=== PATIENT | female | born 1990 | race Two or more races ===

== ENCOUNTER 2025-02-15 16:30 | Emergency (ER) | payer MEDICAID, SELFPAY ==
[2025-02-15 16:40] VITALS: BP 129/89; PULSE 98; RESP 18; TEMP 36.9; O2SAT 97; BMI 31.4
--- NOTE | 2025-02-15 17:43 | XR_ITS ---
Examination: Temporomandibular joints 3 views TECHNIQUE: Sonu, sagittal oblique right and left temporomandibular joints 3 views Date and time: February 15, 2025 1804 hours INDICATIONS: Mandibular pain 3 days. FINDINGS: Body of the mandible and condyles appear intact Bilateral mild osteoarthritis temporomandibular joints No conor cortical bone destruction No fracture is depicted IMPRESSION: Mild bilateral osteoarthritis temporomandibular joints. If pain persists, consider CT maxillofacial/mandible follow-up
--- NOTE | 2025-02-15 17:46 | PD.EDRME ---
Rapid Medical Screening Exam RME Arrival date/time: 02/15/25 16:30 This is a 34-year-old female with complaints of left jaw pain. Patient states she has had marked on the past. Patient states is hard to open her mouth and also sometimes to close it. Patient states that this is the longest it lasted. Patient states she has had it for 3 days. Patient denies any trauma. I have greeted and performed a focused initial assessment of this patient. Initial appropriate labs ordered at this time. A comprehensive ED assessment and evaluation of the patient and analysis of all test and completion of medical decision making process will be conducted by additional ED provider. Chief Complaint: Dental/Oral/Throat Time Seen by Provider: 02/15/25 17:42 Vital signs: Vital Signs Temperature 98.5 F 02/15/25 16:40 Pulse Rate 98 02/15/25 16:40 Respiratory Rate 18 02/15/25 16:40 Blood Pressure 129/89 H 02/15/25 16:40 Pulse Oximetry (%) 97 02/15/25 16:40 Oxygen Delivery Method Room Air 02/15/25 16:40
[2025-02-15] MEDS: DIAZEPAM 5 MG TABLET 10 MG PO (17:54)
--- NOTE | 2025-02-15 18:53 | EDNOTE_ITS ---
ED Dental RME/HPI General Chief complaint: Dental/Oral/Throat Stated complaint: LOCKED JAW Time Seen by Provider: 02/15/25 17:42 Arrival date/time: 02/15/25 16:30 This is a 34-year-old female with complaints of left jaw pain. Patient states she has had marked on the past. Patient states is hard to open her mouth and also sometimes to close it. Patient states that this is the longest it lasted. Patient states she has had it for 3 days. Patient denies any trauma no drooling of saliva patient can speak full sentences patient still able to open the mouth widely Limitations: no limitations RME / HPI RME / HPI Narrative: 02/15/25 16:30 This is a 34-year-old female with complaints of left jaw pain. Patient states she has had marked on the past. Patient states is hard to open her mouth and also sometimes to close it. Patient states that this is the longest it lasted. Patient states she has had it for 3 days. Patient denies any trauma. I have greeted and performed a focused initial assessment of this patient. Initial appropriate labs ordered at this time. A comprehensive ED assessment and evaluation of the patient and analysis of all test and completion of medical decision making process will be conducted by additional ED provider. Related Data Previous Rx's ?Medication ?Instructions ?Recorded hydrocodone 10 mg-acetaminophen 1 tab PO Q6H PRN pain #20 tabs 01/12/20 325 mg tablet (Hampton) ibuprofen 800 mg tablet 600 mg (0.75 x 800 mg) PO TI D #30 01/12/20 tabs cephalexin 750 mg capsule (Keflex) 750 mg PO Q12H #14 caps 04/30/21 cyclobenzaprine 10 mg tablet 10 mg PO HS PRN muscle sp asm #14 01/04/22 tabs ibuprofen 600 mg tablet 600 mg PO Q8H PRN pain #30 t abs 01/04/22 naproxen 500 mg tablet (Naprosyn) 500 mg PO BID #30 ta bs 09/06/22 acetaminophen 500 mg tablet 500 mg PO QID PRN fever or pain 06/23/23 #30 tabs ibuprofen 800 mg tablet 800 mg PO Q8H #10 tabs 06/23 prednisone 20 mg tablet 20 mg PO QDAY 5 days #5 tabs 02/15/25 tramadol 50 mg tablet 50 mg PO Q6H PRN pain #10 ta bs 02/15/25 Allergies Allergy/AdvReac Type Severity Reaction Status Date / Time No Known Drug Allergies Allergy Verified 02/15/25 16:32 Review of Systems Review of Systems Systems Reviewed: All systems reviewed, normal except as documented Constitutional Constitutional: Reports system reviewed and no additional complaints, except as documented, Reports as per HPI and Denies headache(s) ENT Ears, Nose, Mouth, and Throat: Reports system reviewed and no additional complaints, except as documented, Denies as per HPI, Denies abnormal hearing, Denies bleeding gums, Denies change in voice, Denies dental pain, Denies disequilibrium, Denies dizziness, Denies dry mouth, Denies dysphagia, Denies ear discharge, Denies otalgia, Denies epistaxis, Denies facial pain, Denies halitosis, Denies headache(s), Denies hearing loss, Denies hoarseness, Denies lip swelling, Denies mouth lesions, Denies nasal discharge, Denies nasal obstruction, Denies nasal trauma, Denies neck mass, Denies neck pain, Denies nose pain, Denies odynophagia, Denies post nasal drip, Denies sinus pain, Denies sinus pressure, Denies sore throat, Denies throat swelling, Denies tinnitus, Denies tongue swelling and Denies vertigo Cardiovascular Cardiovascular: Reports system reviewed and no additional complaints, except as documented and Reports as per HPI Respiratory Respiratory: Reports system reviewed and no additional complaints, except as documented and Reports as per HPI Gastrointestinal Gastrointestinal: Reports system reviewed and no additional complaints, except as documented, Reports as per HPI, Denies dysphagia and Denies odynophagia Musculoskeletal Musculoskeletal: Reports system reviewed and no additional complaints, except as documented, Reports as per HPI and Denies neck pain Neurologic Neurologic: Reports system reviewed and no additional complaints, except as documented, Reports as per HPI, Denies abnormal hearing, Denies disequilibrium, Denies dizziness, Denies headache(s) and Denies vertigo Allergic/Immunologic Allergic/Immunologic: Denies lip swelling, Denies throat swelling and Denies tongue swelling Past Medical History Past Medical History NEUROLOGIC: Positive Neurological Disorders and Migraine; Negative Seizures CARDIAC: Negative Cardiac Disorders or Congestive Heart Failure RESPIRATORY: Negative Chronic Obstructive Pulmonary Disease (COPD) or Asthma GASTROINTESTINAL: Positive Gall Bladder Disease; Negative Gastrointestinal Disorders or Hepatitis GENITOURINARY: Negative Genitourinary Disorders or Renal Disease REPRODUCTIVE: Positive Previous Pregnancies MUSCULOSKELETAL: Negative Musculoskeletal Disorders ENDOCRINE: Negative Endocrine Disorders, Diabetes Mellitus Type 1 or Diabetes Mellitus Type 2 HEMATOLOGIC: Negative Blood Disorders or Sickle Cell Disease OTHER HISTORY: Positive Chicken Pox; Negative Hospitalization, Autoimmune Disease, Shingles, Falls, Blood Transfusions, Blood Transfusion Reaction, Anesthesia Reactions, Chemotherapy, Radiation Therapy, MRSA, Measles, Mumps or Cancer Family History FAMILY HISTORY: Positive Family Psychiatric Problems, Family Respiratory Disorders, Family Cardiac Disorders and Family Surgery; Negative Family Gastrointestinal Problems, Family Cancer or Family Anesthesia Reaction Surgical History SURGICAL: Negative Cardiac Surgery or Section Social History SMOKING STATUS: Never smoker SECOND HAND EXPOSURE: No ED Exam General Limitations: Present no limitations General appearance: Present alert and in no apparent distress Head Head exam: Present atraumatic, normocephalic and normal inspection Eye Eye exam: Present normal appearance, PERRL and EOMI ENT ENT exam: Present normal exam, normal oropharynx and mucous membranes moist Expanded ENT Exam External ear exam: Present other (Noted moderate tenderness on the left jaw but no swelling no redness no signs and symptoms of abscess nor cellulitis patient is able to open the mouth widely with pain and close the mouth with no problem no hoarseness of voice) Mouth exam: Present normal external inspection; Absent drooling, trismus, lip swelling, tongue normal, tongue elevation, tongue swelling or laceration Teeth exam: Present normal inspection; Absent dental caries, fractured tooth #, dental tenderness # or gingival swelling Throat exam: Present normal inspection; Absent tonsillar erythema, tonsillomegaly, tonsillar exudate, R peritonsillar mass, L peritonsillar mass or muffled voice Neck Neck exam: Present normal inspection, full ROM and trachea midline; Absent tenderness, meningismus, lymphadenopathy or thyromegaly Chest Chest inspection: Present normal inspection and symmetric chest wall rise Respiratory Respiratory exam: Present normal lung sounds bilaterally; Absent respiratory distress, wheezes, stridor, accessory muscle use or prolonged expiratory phase Cardiovascular Cardiovascular exam: Present regular rate, normal rhythm and normal heart sounds Abdominal Exam Abdominal exam: Present soft and normal bowel sounds Extremities Exam Extremities exam: Present normal inspection and full ROM Back Exam Back exam: Present normal inspection and full ROM Neurological Exam Neurological exam: Present alert, oriented X3, CN II-XII intact, normal gait and reflexes normal; Absent motor sensory deficit Psychiatric Psychiatric exam: Present normal affect and normal mood Skin Skin exam: Present warm, dry, intact and normal color Course Quality Measures none Orders Category Date Time Status XR TMJ BI Stat Exams 02/15/25 17:43 Completed Dexamethasone Inj [Decadron Inj] Med 02/15/25 18:50 Discontinued 10 mg IM X1 ONE Diazepam [Valium] Med 02/15/25 17:43 Discontinued 10 mg PO X1 ONE Ketorolac Inj [Toradol Inj] Med 02/15/25 18:50 Pending 30 mg IM X1 ONE Vital Signs Vital signs: Vital Signs Temperature 98.5 F 02/15/25 16:40 Pulse Rate 98 02/15/25 16:40 Respiratory Rate 18 02/15/25 16:40 Blood Pressure 129/89 H 02/15/25 16:40 Pulse Oximetry (%) 97 02/15/25 16:40 Oxygen Delivery Method Room Air 02/15/25 16:40 Oxygen saturation 97% in room air Dental / Oral MDM Narrative MDM Narrative:: This is a 34-year-old female with complaints of left jaw pain. Patient states she has had marked on the past. Patient states is hard to open her mouth and also sometimes to close it. Patient states that this is the longest it lasted. Patient states she has had it for 3 days. Patient denies any trauma no drooling of saliva patient can speak full sentences patient still able to open the mouth widely physical examination patient is awake alert oriented not in distress nontoxic looking lung sound is clear no crackles no rales no retraction no stridor HEENT exam is normal and unremarkable gum and teeth is normal no drooling of saliva patient can speak full sentences patient is able to swallow with no difficulty patient noted to have moderate tenderness on the left jaw but no swelling no redness to suggest cellulitis no abscess patient able to open the mouth widely but with pain and close the mouth no trismus noted no Delfino's angina noted x-ray showed osteoarthritis of TMJ at this point based on my physical examination there is no need to wait for any procedure patient was given dexamethasone and Hampton for pain patient needs to see an ENT specialist for osteoarthritis of the TMJ patient was prescribed with tramadol and prednisone to be started tomorrow Patient was discharged with comfortable condition walking with stable gait. Patient verbalized no further complains explained diagnosis and answered patient question. Patient is comfortable with the proposed management plan including the need to follow up with his/her primary care physician and any specialist if applicable Discussed patient for any urgent condition or worsening sx, He/She needed to go to emergency room immediately or call 911. Patient acknowledge the responsibility to follow up as instructed and to monitor her/his symptoms. For any persistence of the symptoms for more than 3-5 days return precaution advised. Discussed the result of the test and was given printed discharge instruction Patient data External records reviewed:: [facility] previous records Clinical information provided by:: patient Social determinants that could affect healthcare access:: none Patient has the following chronic illnesses:: None How is presenting disease/condition affected by chronic disease/condition?: no chronic disease Evaluation data The following diagnostics were reviewed and interpreted by me:: other (specify) Lab and/or radiology exams considered but not ordered:: Reviewed Interpretation Summary: Reviewed Medications / Prescriptions Medications or Prescriptions considered but not ordered:: Given Medication administrations:: Medication Administration History Ketorolac Tromethamine (Ketorolac Inj 60 Mg/2 Ml Vial) 30 mg IM X1 ONE Stop: 02/15/25 18:51 Discontinued Medications Dexamethasone Sodium Phosphate (Dexamethasone Sod Phos Inj 10 Mg/Ml Vial) 10 mg IM X1 ONE Stop: 02/15/25 18:51 Diazepam (Diazepam 5 Mg Tablet) 10 mg PO X1 ONE Stop: 02/15/25 17:44 Last Admin: 02/15/25 17:54 Dose: 10 mg Documented By: KF Given Consultations Consultation(s) initiated? (list below): No Diagnosis Dental Differential Diagnosis: other (lock jaw tmj osteaoarthritis) Most likely diagnosis given after review of the tests above:: Osteoarthritis TMJ Admission Indicated Admission indicated?: not indicated Explain why admission is indicated or not indicated:: Not indicated Admission Request Was there a request for admission?: No Admission Attestation Admission request attestation: Not indicated Disposition Plan Disposition Plan: Discharge Discharge Attestation Discharge Attestation: The patient and all family members were given an opportunity to ask questions and understood the discharge instructions. Discharge instructions specifically effects, indications for sooner follow up or return to the emergency department, and the expected course of current diagnosis. Patient condition: Stable Discharge Plan Plan Patient Disposition: HOME (Self Care) Patient condition on transfer: Stable Prescriptions/Referrals Prescriptions/Med Rec: New tramadol 50 mg tablet 50 mg PO Q6H PRN (Reason: pain) Qty: 10 0RF prednisone 20 mg tablet 20 mg PO QDAY 5 Days Qty: 5 0RF Rx Instructions: atrt tomorrow No Action ibuprofen 800 mg tablet 600 mg PO TID Qty: 30 0RF hydrocodone-acetaminophen [Hampton] 10-325 mg tablet 1 tab PO Q6H MDD 3 PRN (Reason: pain) Qty: 20 0RF cephalexin [Keflex] 750 mg capsule 750 mg PO Q12H Qty: 14 0RF cyclobenzaprine 10 mg tablet 10 mg PO HS PRN (Reason: muscle spasm) Qty: 14 0RF ibuprofen 600 mg tablet 600 mg PO Q8H PRN (Reason: pain) Qty: 30 0RF naproxen [Naprosyn] 500 mg tablet 500 mg PO BID Qty: 30 0RF ibuprofen 800 mg tablet 800 mg PO Q8H Qty: 10 0RF acetaminophen 500 mg tablet 500 mg PO QID PRN (Reason: fever or pain) Qty: 30 0RF Referrals: Mckinley Spencer MD [Primary Care Provider] - In 1 week Problem List Clinical Impression: Jaw pain, Temporomandibular joint osteoarthritis Patient/Caregiver Discharge Instructions Education Materials: TMD Self Care, Understanding ..., TMD Pain Relief, ED Osteoarthritis Additional Instructions: Follow-up with your primary care physician in 2 days for reevaluation and to be referred to ENT specialist for further evaluation and treatment of osteoarthritis of TMJ worsening symptoms or any emergent concern call 911 or go to the nearest emergency room do not chew hard food eat soft diet keep hydrated warm and cold compress as needed for pain take your medication as directed Print Language: Nepali Stand Alone Forms: [facility] Award Info., Patient Portal Info Letter PA/BARB Supervising Physician CHANI/BARB Supervising Physician: dr james
[2025-02-15] MEDS: HYDROcodone/APAP 5/325 TABLET 1 TAB PO (18:59)
[2025-02-15] MEDS: DEXAMETHASONE SOD PHOS INJ 10 MG/ML VIAL IM (19:00)
== END 2025-02-15 19:10 | disposition home or self-care (01) ==
PROVIDERS: Emergency Provider Emergency Medicine; PCP Family Medicine
DX: M26.649 Arthritis of unspecified temporomandibular joint (principal)
CPT/HCPCS: 70330; 99283; J1100; A9270